=== PATIENT | female | born 1985 | race Caucasian/White ===

== ENCOUNTER 2018-02-12 08:49 | Day surgery (SDC) | payer MEDICARE ==
[~2018-02-12] VITALS: Ht 157.5 cm; Wt 68.1 kg
[~2018-02-12 08:49] MED LIST: CEFAZOLIN 1,000 MG ONE; CEFT1VIA6 IV; FENTANYL PF 100 MCG/2ML ONE; FERR325T18 PO; FURO-92 PO; HEPARIN 1,000 UNITS/ML, 10ML ONE; LISI-170 PO; METH-356 PO; METO25TA35 PO; METO50TA82 PO; MIDAZOLAM 1 MG/ML, 2ML ONE; OMEP-110 PO; ONDANSETRON 2MG/ML, 2ML ONE; PRED20TA PO; PREG50CA PO; PROPOFOL 10 MG/ML, 20ML ONE; PROTAMINE SULFATE 10 MG/ML, 5ML ONE; TEMA30CA PO
[2018-02-12] MEDS ORDERED: LABETALOL 5MG/ML, 20ML IV PRN (10:00)
[2018-02-12] MEDS ORDERED: ONDANSETRON 2MG/ML, 2ML IVPush PRN (10:00)
[2018-02-12] MEDS ORDERED: MIDAZOLAM 1 MG/ML, 2ML IV PRN (10:00)
[2018-02-12] MEDS ORDERED: MEPERIDINE/PF 25MG/0.5ML IVPush PRN (10:00)
[2018-02-12] MEDS ORDERED: HYDROmorphone 1 MG/ML, 1ML IV PRN (10:00)
[2018-02-12] MEDS ORDERED: FENTANYL PF 100 MCG/2ML IV PRN (10:00)
[2018-02-12] MEDS ORDERED: OXYcodone 5 MG/5 ML ORAL.SOL UDC PO PRN (10:00)
[2018-02-12 10:14] VITALS: BP 149/108
[2018-02-12 10:16] VITALS: BP 146/103
[2018-02-12 10:19] LABS: HCG UR SG 1.005 (1.003-1.030)
[2018-02-12] MEDS ORDERED: SODIUM CHLORIDE 0.9% 1,000 ML IV SCH (10:22)
[2018-02-12] MEDS ORDERED: LIDOCAINE-MPF 1%, 2ML ONE (10:23)
[2018-02-12] MEDS ORDERED: PLEASE ENTER HEIGHT AND WEIGHT MC SCH (10:30)
[2018-02-12] MEDS ORDERED: LIDOCAINE-MPF 1%, 2ML INFIL ONE (10:30)
[2018-02-12] MEDS ORDERED: ZALE10CA PO (10:54)
[2018-02-12] MEDS ORDERED: DEXAMETHASONE 4 MG/ML, 1ML ONE (11:09)
[2018-02-12] MEDS ORDERED: CEFAZOLIN 1,000 MG ONE (11:09)
[2018-02-12] MEDS ORDERED: OXYcodone 5 MG/5 ML ORAL.SOL UDC ONE (12:32)
== END 2018-02-12 14:20 | disposition home or self-care (01) ==
LOC: OUT 08:49
PROVIDERS: ATTEND Surgery Vascular Surgery
DX: E11.22 Type 2 diabetes mellitus with diabetic chronic kidney disease (principal); I12.0 Hypertensive chronic kidney disease with stage 5 chronic kidney disease or end stage renal disease; N18.6 End stage renal disease; Z88.8 Allergy status to other drugs, medicaments and biological substances; M32.9 Systemic lupus erythematosus, unspecified
CPT/HCPCS: 36415; 36821; 81025; 93005; J0690; J1100; J1644; J2250; J2405; J2704; J3010; J7030; 80047; J2720

== ENCOUNTER 2018-05-02 18:50 | Emergency (ER) | payer MEDICARE ==
[~2018-05-02 18:50] MED LIST changes: -CEFAZOLIN 1,000 MG ONE; -FENTANYL PF 100 MCG/2ML ONE; -HEPARIN 1,000 UNITS/ML, 10ML ONE; -MIDAZOLAM 1 MG/ML, 2ML ONE; -ONDANSETRON 2MG/ML, 2ML ONE; -PROPOFOL 10 MG/ML, 20ML ONE; -PROTAMINE SULFATE 10 MG/ML, 5ML ONE; +ZALE10CA PO
== END 2018-05-02 19:59 ==
LOC: ED 19:53
DX: Z53.21 Procedure and treatment not carried out due to patient leaving prior to being seen by health care provider (principal)